=== PATIENT | male | born 1970 | race American Indian/Alaskan Native ===

== ENCOUNTER 2021-03-09 08:09 | Emergency (ER) | payer OTHER ==
[2021-03-09] MEDS ORDERED: ASPIRIN 325 MG TAB PO ONE (08:18)
[2021-03-09 08:47] LABS: Basophils # (Auto) 0.1 K/mm3 (0.0-0.1); Eosinophils # (Auto) 0.2 K/mm3 (0.0-0.4); Eosinophils % (Auto) 1.7 % (0.0-4.3); Monocytes # (Auto) 1.3 K/mm3 (0.0-0.8); Monocytes % (Auto) 12.8 % (0.0-7.3)
--- NOTE | 2021-03-09 09:00 | XRay Report ---
CHEST 2 VIEWS INDICATION: chest pain. Shortness of breath for one week. COMPARISON: None FINDINGS: Support devices: None. Heart: Within normal limits. Lungs/pleura: There is a focal 4 cm ill-defined airspace opacity at the anterior left lung base. A fo amarilys infiltrate or possibly a mass is difficult to exclude. The remainder of the lungs are clear. Tra ce left pleural effusion is identified. No pneumothorax. Additional findings: None. IMPRESSION: Ill-defined 4 cm opacity at the left lung base as described. Consider further evaluation with CT ches t preferably with contrast. Signer Name: Jack East Jr, MD Signed: 03/09/2021 8:56 AM Workstation Name: [id number]
[2021-03-09 09:13] LABS: Alanine Aminotransferase 22 units/L (7-56); Albumin 3.5 g/dL (3.9-5); BUN/Creatinine Ratio 12; Blood Urea Nitrogen 11 mg/dL (9-20); Calcium 9.7 mg/dL (8.4-10.2); Hemolysis Index 3
[2021-03-09] MEDS ORDERED: NITROGLYCERIN 0.4 MG TAB SUBL SL PRN (10:09)
[2021-03-09] MEDS ORDERED: ASPIRIN 325 MG TAB ONE (10:22)
--- NOTE | 2021-03-09 10:24 | Emergency Department Report ---
ED Chest Pain HPI - General Chief Complaint: Neuro Symptoms/Deficit Stated Complaint: chest pain, passed out, headache, left arm weakness Time Seen by Provider: 03/09/21 09:53 Source: patient Mode of arrival: Ambulatory Limitations: No Limitations - History of Present Illness Initial Comments: 50-year-old male with history of hypertension presents for a number of various complaints, namely mid substernal chest pain which lasted 1 hour today. The patient states that on Tuesday, 2 days ago, he was at a restaurant when suddenly he began to feel very sweaty and lightheaded and reportedly passed out. He woke up and was on the ground, and at that time felt like he had difficulty moving his left arm. Since then he has had intermittent episodes of global pressure-like headache, particularly on the right side of his head, intermittent chest pain lasting seconds at a time, and intermittent feeling like he is weak in the left arm. Today, his chest pain which he describes as sharp, lasted for 1 hour which was longer than any of the prior episodes and this scared him causing him to come to the emergency department. The pain radiates to his left arm. Denies any associated palpitations, nausea/vomiting, shortness of breath, cough, fever/chills, or any other associated symptoms. At this time he reports no headache and no symptoms other than a pain in the left side of his chest/armpit and the feeling like he is weak in the left arm. Although during the interview, the patient states that his chest pain is slightly increasing at this time. Severity scale (0 -10): 8 - Related Data Previous Rx's Medication Instructions Recorded Last Taken Type Famotidine [Pepcid] 20 mg PO BID #60 tablet 08/01/13 Unknown Rx HYDROcodone/APAP 10-325 [York 1 each PO Q6HR PRN #30 tablet 08/01/13 Unknown Rx 10/325] Metoclopramide [Reglan] 10 mg PO TID PRN #30 tablet 08/01/13 Unknown Rx Apixaban [Eliquis] 5 mg PO BID #74 tablet 03/09/21 Unknown Rx hydroCHLOROthiazide [HCTZ] 25 mg PO QDAY #30 tablet 03/09/21 Unknown Rx Allergies Allergy/AdvReac Type Severity Reaction Status Date / Time No Known Allergies Allergy Verified 03/09/21 08:18 Heart Score - HEART Score History: Highly suspicious EKG: Non-specific Age: 45-65 Risk factors: 1-2 risk factors Troponin: < normal limit HEART Score: 5 - EKG Read Time Time EKG Completed: 08:22 EKG Read Time: 08:27 ED Review of Systems ROS: Stated complaint: HEAD PAINS Other details as noted in HPI Constitutional: denies: chills, fever Eyes: denies: eye pain, vision change ENT: denies: throat pain, congestion Respiratory: denies: cough, shortness of breath Cardiovascular: chest pain, syncope. denies: palpitations, edema Gastrointestinal: denies: abdominal pain, nausea, vomiting Genitourinary: denies: dysuria, frequency Musculoskeletal: denies: back pain, myalgia Skin: denies: rash Neurological: headache (not now). denies: weakness, numbness ED Past Medical Hx - Past Medical History Previous Medical History?: Yes Hx Hypertension: Yes - Social History Smoking Status: Current Every Day Smoker Substance Use Type: None - Medications Home Medications: Home Medications Medication Instructions Recorded Confirmed Last Taken Type Famotidine [Pepcid] 20 mg PO BID #60 tablet 08/01/13 Unknown Rx HYDROcodone/APAP 10-325 [[place] 1 each PO Q6HR PRN #30 tablet 08/01/13 Unknown Rx 10/325] Metoclopramide [Reglan] 10 mg PO TID PRN #30 tablet 08/01/13 Unknown Rx Apixaban [Eliquis] 5 mg PO BID #74 tablet 03/09/21 Unknown Rx hydroCHLOROthiazide [HCTZ] 25 mg PO QDAY #30 tablet 03/09/21 Unknown Rx ED Physical Exam - General Limitations: No Limitations - Other Other exam information: GENERAL: Well developed and well nourished. No acute distress HEENT: Normocephalic. No obvious signs of trauma. Moist mucous membranes. EYES: Extraocular movements are intact. Pupils are equal round and reactive to light bilaterally NECK: Supple. Trachea is midline. LUNGS: Nonlabored breathing. Equal chest rise bilaterally. Rales localized to the left lung base. Otherwise clear. HEART/CARDIOVASCULAR: Regular rate and rhythm. No murmurs or rubs. VASCULAR: 2+ peripheral pulses, equal on both sides. Cap refill < 2 seconds ABDOMEN: Abdomen is soft and nondistended. There is no significant tenderness, guarding or rebound. SKIN: Skin is warm and dry NEURO: Patient is awake, alert, and oriented. viscosity inspector II-XII grossly intact. No focal deficits. Normal motor and sensory exam throughout with no drift. Normal speech. MUSCULOSKELETAL: No obvious deformities. No significant tenderness. BACK/SPINE: No midline tenderness or step-offs of the C/T/L spine. No costovertebral angle tenderness. ED Course Vital Signs 03/09/21 03/09/21 08:17 10:10 Temperature 99.0 F Pulse Rate 101 H Respiratory 18 Rate Blood Pressure 175/117 Blood Pressure 152/99 [Left] Blood Pressure 155/102 [Right] O2 Sat by Pulse 98 Oximetry RO score - Ro Score Age > 65: (0) No Aspirin use within the Past 7 Days: (1) Yes 3 or more CAD Risk Factors: (0) No 2 or more Angina events in past 24 hrs: (1) Yes Known CAD with more than 50% Stenosis: (0) No Elevated Cardiac Markers: (0) No ST Deviation Greater than 0.5mm: (0) No RO Score: 2 ED Medical Decision Making - Lab Data Result diagrams: 03/09/21 11:19 03/09/21 08:26 Lab Results 03/09/21 03/09/21 03/09/21 Range/Units 08:15 08:26 08:26 WBC 9.8 (4.5-11.0) K/mm3 RBC 4.77 (3.65-5.03) M/mm3 Hgb 15.7 H (11.8-15.2) gm/dl Hct 43.7 (35.5-45.6) % MCV 92 (84-94) fl MCH 33 H (28-32) pg MCHC 36 H (32-34) % RDW 14.4 (13.2-15.2) % Plt Count 355 (140-440) K/mm3 Lymph % (Auto) 18.3 (13.4-35.0) % Kinney % (Auto) 12.8 H (0.0-7.3) % Eos % (Auto) 1.7 (0.0-4.3) % Baso % (Auto) 0.6 (0.0-1.8) % Lymph # (Auto) 1.8 (1.2-5.4) K/mm3 Kinney # (Auto) 1.3 H (0.0-0.8) K/mm3 Eos # (Auto) 0.2 (0.0-0.4) K/mm3 Baso # (Auto) 0.1 (0.0-0.1) K/mm3 Seg Neutrophils % 66.6 (40.0-70.0) % Seg Neutrophils # 6.6 (1.8-7.7) K/mm3 PT (12.2-14.9) Sec. INR (0.87-1.13) APTT (24.2-36.6) Sec. Sodium 135 L (137-145) mmol/L Potassium 4.6 (3.6-5.0) mmol/L Chloride 97.2 L (98-107) mmol/L Carbon Dioxide 28 (22-30) mmol/L Anion Gap 14 mmol/L BUN 11 (9-20) mg/dL Creatinine 0.9 (0.8-1.3) mg/dL Estimated GFR > 60 ml/min BUN/Creatinine Ratio 12 % Glucose 107 H (75-100) mg/dL POC Glucose 100 (70-105) mg/dL Calcium 9.7 (8.4-10.2) mg/dL Total Bilirubin 0.30 (0.1-1.2) mg/dL AST 33 (5-40) units/L ALT 22 (7-56) units/L Alkaline Phosphatase 67 (35-129) units/L Troponin T < 0.010 (0.00-0.029) ng/mL Total Protein 7.9 (6.3-8.2) g/dL Albumin 3.5 L (3.9-5) g/dL Albumin/Globulin Ratio 0.8 % 03/09/21 03/09/21 03/09/21 Range/Units 11:19 11:19 11:19 WBC (4.5-11.0) K/mm3 RBC (3.65-5.03) M/mm3 Hgb 14.8 (11.8-15.2) gm/dl Hct 44.0 (35.5-45.6) % MCV (84-94) fl MCH (28-32) pg MCHC (32-34) % RDW (13.2-15.2) % Plt Count 325 (140-440) K/mm3 Lymph % (Auto) (13.4-35.0) % Kinney % (Auto) (0.0-7.3) % Eos % (Auto) (0.0-4.3) % Baso % (Auto) (0.0-1.8) % Lymph # (Auto) (1.2-5.4) K/mm3 Kinney # (Auto) (0.0-0.8) K/mm3 Eos # (Auto) (0.0-0.4) K/mm3 Baso # (Auto) (0.0-0.1) K/mm3 Seg Neutrophils % (40.0-70.0) % Seg Neutrophils # (1.8-7.7) K/mm3 PT 13.8 (12.2-14.9) Sec. INR 1.00 (0.87-1.13) APTT 36.5 (24.2-36.6) Sec. Sodium (137-145) mmol/L Potassium (3.6-5.0) mmol/L Chloride (98-107) mmol/L Carbon Dioxide (22-30) mmol/L Anion Gap mmol/L BUN (9-20) mg/dL Creatinine (0.8-1.3) mg/dL Estimated GFR ml/min BUN/Creatinine Ratio % Glucose (75-100) mg/dL POC Glucose (70-105) mg/dL Calcium (8.4-10.2) mg/dL Total Bilirubin (0.1-1.2) mg/dL AST (5-40) units/L ALT (7-56) units/L Alkaline Phosphatase (35-129) units/L Troponin T < 0.010 (0.00-0.029) ng/mL Total Protein (6.3-8.2) g/dL Albumin (3.9-5) g/dL Albumin/Globulin Ratio % - EKG Data -: EKG Interpreted by Me - EKG Data 03/09/21 10:38 EKG #1 performed at 8:22 AM Sinus tachycardia. Normal axis. Normal intervals. Early repolarization noted throughout. Peaked T waves noted in the anterolateral leads. Otherwise no significant ST or T wave abnormalities. EKG #2 performed at 10:11 AM Normal sinus rhythm. Normal axis. Normal intervals. Early repolarization noted throughout. Peak T waves noted in the antertolateral leads. Otherwise no significant ST or T wave abnormalities. - Radiology Data CTA CHEST WITH IV CONTRAST INDICATION: Chest pain. TECHNIQUE: Axial CT images were obtained through the chest after injection of 100 cc Omnipaque 350 IV contrast. 3 plane MIP reconstructions were produced. All CT scans at this location are performed using CT dose reduction for ALARA by means of automated exposure control. COMPARISON: None available. FINDINGS: Pulmonary Arteries: There are some small emboli and multiple segmental arteries in the left lower lobe. There is are also potentially some questionable emboli in some segmental branches in the right lower lobe. Lungs: There is a spiculated and heterogeneous 4.3 x 4.5 cm mass in the lateral left lower lobe. There is moderate emphysema. There are no additional pulmonary nodules or masses. Trachea and Bronchi: No significant abnormality. Heart and Pericardium: No significant abnormality. Vasculature: No significant abnormality. Lymphatics: There are some mildly enlarged left hilar nodes. For example, there is a 2.3 x 1.4 cm left hilar node on image 218 of series #4. Additional Findings: None. Upper Abdomen: No acute findings. Skeletal Structures: No acute findings or aggressive bone lesions. IMPRESSION: 1. Small emboli in the left lower lobe with additional questionable emboli in the right lower lobe. 2. Left lower lobe mass suggestive of bronchogenic malignancy. There is also left hilar adenopathy concerning for metastatic adenopathy. Findings discussed with Dr. Friedman at 10:00 AM central time. Signer Name: Taco Ralph MD Signed: 03/09/2021 10:00 AM Workstation Name: [id number] CHEST 2 VIEWS INDICATION: chest pain. Shortness of breath for one week. COMPARISON: None FINDINGS: Support devices: None. Heart: Within normal limits. Lungs/pleura: There is a focal 4 cm ill-defined airspace opacity at the anterior left lung base. A focal infiltrate or possibly a mass is difficult to exclude. The remainder of the lungs are clear. Trace left pleural effusion is identified. No pneumothorax. Additional findings: None. IMPRESSION: Ill- defined 4 cm opacity at the left lung base as described. Consider further evaluation with CT chest preferably with contrast. Signer Name: Jack East Jr, MD Signed: 03/09/2021 7:56 AM Workstation Name: [id number] CT head/brain wo con INDICATION: Syncope and headache. TECHNIQUE: All CT scans at this location are performed using CT dose reduction for ALARA by means of automated exposure control. COMPARISON: None available. FINDINGS: There is no evidence of hemorrhage, hydrocephalus, brain edema, or mass effect/mass lesion. There is overall normal brain formation and brain volume for the patient's age. Ventricular and cisternal/sulcal size is normal for age. The included paranasal sinuses and mastoid air cells are clear. The orbits appear unremarkable. IMPRESSION: 1. No findings to explain the patient's symptoms. Signer Name: Taco Ralph MD Signed: 03/09/2021 9:52 AM Workstation Name: [id number] - Medical Decision Making 50-year-old male presenting for mid substernal chest pain radiating to the left arm. Patient has a complex story in which he had a syncopal episode 2 days ago at random. He was at dinner with friends and standing up and all of a sudden he began to feel sweaty and lightheaded and passed out. After waking up, the patient reported having difficulty moving his left arm. Since this episode he has had intermittent episodes of chest pain and headache. Chest pain lasted 1 hour and resolved just prior to arrival to the emergency department. On initial assessment, he was initially tachycardic but now has a heart rate in the 80s. He is afebrile and with otherwise normal vitals other than hypertension. Although he feels weak in his left arm, he has a normal neurologic exam with normal motor function and no sensory deficits throughout. The remainder of his neurologic exam is nonfocal. There is no obvious signs of head trauma. He has no tenderness of the C/T/L-spine. Lung auscultation reveals crackles localized to the left lung base. During the interview, the patient reported that his chest pain is returning and I have ordered a repeat EKG. Initial EKG showed peaked T waves in the anterior lateral leads, with no other obvious abnormalities. Repeat EKG is unchanged from prior. The patient's new chest pain resolved within a couple minutes. Labs and chest x-ray were ordered in triage and have only partially resulted. CBC is still pending. CMP is resulted and there is no significant electrolyte abnormality and kidney function is normal. Initial troponin is negative. Patient's heart score is 4. However, chest x-ray reveals 4 cm opacity/mass localized to the left lung base with recommendation for further elucidation with contrasted CT of the chest. Given the patient's concerning presentation and symptoms, I have ordered CT a of the chest to evaluate for pulmonary embolism, aortic dissection, and to further elucidate the opacity seen in chest x-ray. I have also ordered CT of the head given that he reports syncope and possibly hit his head. We will continue monitor the patient closely and follow-up all diagnostic studies. CBC has resulted in reveals no significant leukocytosis or anemia. Hemoglobin is elevated at 15.4 consistent with hemoconcentration due to dehydration. We will therefore administer 1 L of IV fluids. At 10:55 AM, I received a call from the radiologist. The patient's head CT reveals no acute abnormalities. There is no cranial bleeding. Patient's CT of the chest reveals a 4.5 cm mass in the left lung base with associated adenopathy and findings highly suggestive of bronchogenic carcinoma. In addition, there are left lower lobe pulmonary emboli and questionable right lower lobe pulmonary emboli. In light of these findings, coupled with the patient's story featuring syncope, and recurrent chest pain, I will administer aspirin, start a heparin drip, and admit the patient to the hospitalist for further work-up and ma nagement. I discussed the patient's diagnostic results including labs and CT head, chest x-ray, and CT angiogram of the chest and conveyed to the patient and his at the bedside that he does have a 4.5 cm mass in the left lung which is highly concerning for lung cancer as well as pulmonary emboli. The patient is an active smoker. I did answer all the patient's questions. He expressed understanding and agreement with our plan of care. At 45 PM, I spoke with Dr. Singh regarding admission and he said he would come down and see the patient. I consulted cardiology and spoke over the phone with Dr. Pope of cardiology who stated that he would be happy to consult and see the patient and provide further inpatient recommendations. Dr. Singh will assume care and make decisions regarding disposition. Critical Care Time: Yes (40) Critical care time in (mins) excluding proc time.: 40 Critical care attestation.: If time is entered above; I have spent that time in minutes in the direct care of this critically ill patient, excluding procedure time. Critical care time was spent in the assessment, evaluation, work-up, and management of unstable angina and pulmonary emboli requiring initiation of IV heparin drip and consultation with specialist ED Disposition Clinical Impression: Pulmonary emboli, Mass of left lung, Syncope, Hypertension, Dehydration, Chest pain Disposition: OP ADMIT IP TO THIS HOSP Is pt being admited?: Yes Condition: Stable Instructions: Angina, [id number], Syncope (ED), Hypertension (ED), Nonspecific Chest Pain, Adult Prescriptions: Apixaban [Eliquis] 5 mg PO BID #74 tablet hydroCHLOROthiazide [HCTZ] 25 mg PO QDAY #30 tablet Referrals: PRIMARY CARE, [Primary Care Provider] - 3-5 Days
[2021-03-09 10:42] LABS: Basophils % (Auto) 0.6 % (0.0-1.8); Lymphocytes # (Auto) 1.8 K/mm3 (1.2-5.4); Lymphocytes % (Auto) 18.3 % (13.4-35.0); Mean Corpuscular HGB Conc 36 % (32-34); Mean Corpuscular Volume 92 fl (84-94); Platelet Count 355 K/mm3 (140-440); Red Blood Count 4.77 M/mm3 (3.65-5.03); Red Cell Distribution Width 14.4 % (13.2-15.2)
[2021-03-09 10:46] LABS: Hematocrit 43.7 % (35.5-45.6); Hemoglobin 15.7 gm/dl (11.8-15.2)
--- NOTE | 2021-03-09 10:56 | Cat Scan Report ---
CT head/brain wo con INDICATION: Syncope and headache. TECHNIQUE: All CT scans at this location are performed using CT dose reduction for ALARA by means of automated e xposure control. COMPARISON: None available. FINDINGS: There is no evidence of hemorrhage, hydrocephalus, brain edema, or mass effect/mass lesion. There is overall normal brain formation and brain volume for the patient's age. Ventricular and cisternal/sulc al size is normal for age. The included paranasal sinuses and mastoid air cells are clear. The orbits appear unremarkable. IMPRESSION: 1. No findings to explain the patient's symptoms. Signer Name: Taco Ralph MD Signed: 03/09/2021 10:52 AM Workstation Name: [id number]
[2021-03-09] MEDS ORDERED: HEPARIN/ 0.45% NACL DRIP 25,000 UNIT/500 ML BAG IV SCH (11:00)
[2021-03-09] MEDS ORDERED: HEPARIN 10,000 UNITS/10 ML VIAL IV ONE (11:00)
[2021-03-09] MEDS ORDERED: HEPARIN 10,000 UNITS/10 ML VIAL IV PRN (11:00)
--- NOTE | 2021-03-09 11:04 | Cat Scan Report ---
CTA CHEST WITH IV CONTRAST INDICATION: Chest pain. TECHNIQUE: Axial CT images were obtained through the chest after injection of 100 cc Omnipaque 350 IV contrast. 3 plane MIP reconstructions were produced. All CT scans at this location are performed using CT dose reduction for ALARA by means of automated exposure control. COMPARISON: None available. FINDINGS: Pulmonary Arteries: There are some small emboli and multiple segmental arteries in the left lower lob e. There is are also potentially some questionable emboli in some segmental branches in the right low er lobe. Lungs: There is a spiculated and heterogeneous 4.3 x 4.5 cm mass in the lateral left lower lobe. Ther e is moderate emphysema. There are no additional pulmonary nodules or masses. Trachea and Bronchi: No significant abnormality. Heart and Pericardium: No significant abnormality. Vasculature: No significant abnormality. Lymphatics: There are some mildly enlarged left hilar nodes. For example, there is a 2.3 x 1.4 cm lef t hilar node on image 218 of series #4. Additional Findings: None. Upper Abdomen: No acute findings. Skeletal Structures: No acute findings or aggressive bone lesions. IMPRESSION: 1. Small emboli in the left lower lobe with additional questionable emboli in the right lower lobe. 2. Left lower lobe mass suggestive of bronchogenic malignancy. There is also left hilar adenopathy co ncerning for metastatic adenopathy. Findings discussed with Dr. Friedman at 10:00 AM central time. Signer Name: Taco Ralph MD Signed: 03/09/2021 11:00 AM Workstation Name: [id number]
[2021-03-09] MEDS ORDERED: SODIUM CHLORIDE 0.9% 1000 ML 1,000 ML IV ONE (11:24)
[2021-03-09 11:29] LABS: Hemoglobin 14.8 gm/dl (11.8-15.2)
[2021-03-09 11:42] LABS: Partial Thromboplastin Time 36.5 Sec. (24.2-36.6)
--- NOTE | 2021-03-09 12:26 | Event Note ---
Date: 03/09/21 50 YO Male with nicotine dependence, hypertension with medication noncompliance who is currently lost to outpatient follow-up presents to ED for evaluation. Patient seen and evaluated in the emergency department. All lab and imaging studies reviewed. Upon further evaluation the patient was found to have atypical chest pain consistent with chest wall pain localized to the left flank. Patient underwent CT scan of the chest which reveals left lung mass consistent with malignancy. Patient found to have a pulse oximetry of 98% on room air with exertion without dyspnea. Cardiac enzymes and EKG did not reveal any evidence of ischemia. Patient found to have hypertension and treated with antihypertensive therapy. Patient medically optimized and treated with therapeutic anticoagulation and antihypertensive therapy and discharged home and instructed to follow-up with primary care physician within 1 week as well as oncology within 3 to 5 days, as well as cardiology within 3 to 5 days. Patient counseled regarding the risk of malignancy and risk of worsening symptoms if patient does not undergo outpatient management. Advanced care planning conducted in ED. Patient acknowledges understanding instructions. ED Physical Exam GENERAL: Well developed and well nourished. No acute distress HEENT: Normocephalic. No obvious signs of trauma. Moist mucous membranes. EYES: Extraocular movements are intact. Pupils are equal round and reactive to light bilaterally NECK: Supple. Trachea is midline. LUNGS: Nonlabored breathing. Equal chest rise bilaterally. Rales localized to the left lung base. Otherwise clear. HEART/CARDIOVASCULAR: Regular rate and rhythm. No murmurs or rubs. VASCULAR: 2+ peripheral pulses, equal on both sides. Cap refill < 2 seconds ABDOMEN: Abdomen is soft and nondistended. There is no significant tenderness, guarding or rebound. SKIN: Skin is warm and dry NEURO: Patient is awake, alert, and oriented. mechanical press operator II-XII grossly intact. No focal deficits. Normal motor and sensory exam throughout with no drift. Normal speech. MUSCULOSKELETAL: No obvious deformities. No significant tenderness. BACK/SPINE: No midline tenderness or step-offs of the C/T/L spine. No costovertebral angle tenderness.
[2021-03-09] MEDS ORDERED: hydroCHLOROthiazide 25 MG TAB PO NR (12:31)
[2021-03-09 13:00] LABS: Hematocrit 41.6 % (35.5-45.6); Mean Corpuscular HGB Conc 34 % (32-34); Mean Corpuscular Volume 91 fl (84-94); Platelet Count 318 K/mm3 (140-440); Red Blood Count 4.55 M/mm3 (3.65-5.03); Red Cell Distribution Width 14.3 % (13.2-15.2)
[2021-03-09 13:13] LABS: INR 1.12 (0.87-1.13)
[2021-03-09 13:27] LABS: Partial Thromboplastin Time 230.3 Sec. (24.2-36.6)
[2021-03-09 14:38] VITALS: BP 140/90
[2021-03-09] MEDS ORDERED: APIXABAN 5 MG TAB PO SCH (22:00)
--- NOTE | 2021-03-10 11:13 | Electrocardiograph Report ---
[facility] Test Date: 2021-03-09 Test Time: 08:22:01 Pat Name: FREYA MIRZA Department: Room: Gender: M [employer] Assistants: SHAYE : 1970 Requested By: ED DOC Order Number: [id number] Reading MD: Brian Garcia Measurements Intervals [place] Rate: 97 P: 20 IN: 137 QRS: 65 QRSD: 81 T: 55 QT: 343 QTc: 436 Interpretive Statements Sinus rhythm Probable left atrial enlargement ST elev, probable normal early repol pattern No previous ECG available for comparison Electronically Signed On 03-10-2021 11:13:14 EDT by Brian Garcia
--- NOTE | 2021-03-10 11:14 | Electrocardiograph Report ---
[facility] Test Date: 2021-03-09 Test Time: 10:11:50 Pat Name: FREYA MIRZA Department: Room: Gender: M Licensed Pharmacist: CATHERINE : 1970 Requested By: GÉNESIS ROMAN Order Number: [id number] Reading MD: Brian Garcia Measurements Intervals [place] Rate: 86 P: 57 AL: 155 QRS: 52 QRSD: 81 T: 44 QT: 361 QTc: 431 Interpretive Statements Sinus rhythm Consider left ventricular hypertrophy ST elevation suggests acute pericarditis Compared to ECG 03/09/2021 08:22:01 No significant changes Electronically Signed On 03-10-2021 11:13:39 EDT by Brian Garcia
== END 2021-03-09 14:15 | disposition admitted as inpatient to this hospital (09) ==
LOC: ED 08:09
DX: I26.99 Other pulmonary embolism without acute cor pulmonale (principal); I10 Essential (primary) hypertension; E86.0 Dehydration; R91.8 Other nonspecific abnormal finding of lung field; F17.200 Nicotine dependence, unspecified, uncomplicated; Z98.890 Other specified postprocedural states; Z79.899 Other long term (current) drug therapy
CPT/HCPCS: 36415; 70450; 71046; 71275; 80053; 82565; 82962; 84484; 85014; 85018; 85025; 85027; 85049; 85610; 85730; 93005; 96365; 96376; 99291; J1644; J7030; Q9967; 99284

== ENCOUNTER 2021-04-30 08:21 | Day surgery (SDC) | payer OTHER ==
[2021-04-30] MEDS ORDERED: ONDANSETRON 4 MG/2 ML INJ IV ONE (08:47)
[2021-04-30] MEDS ORDERED: HYDROmorphone 1 MG/1 ML INJ IV ONE (08:49)
[2021-04-30] MEDS ORDERED: SODIUM CHLORIDE 0.9% 500 ML 500 ML IV SCH (09:00)
[2021-04-30 09:14] LABS: Hematocrit 49.3 % (35.5-45.6); Hemoglobin 16.4 gm/dl (11.8-15.2); Mean Corpuscular HGB Conc 33 % (32-34); Mean Corpuscular Volume 91 fl (84-94); Platelet Count 289 K/mm3 (140-440); Red Cell Distribution Width 15.6 % (13.2-15.2)
[2021-04-30 09:19] VITALS: BP 142/104
[2021-04-30 09:24] LABS: INR 0.87 (0.87-1.13)
[2021-04-30 09:25] LABS: Partial Thromboplastin Time 32.1 Sec. (24.2-36.6)
--- NOTE | 2021-04-30 11:01 | Cat Scan Report ---
CT CHEST WITHOUT CONTRAST INDICATION / CLINICAL INFORMATION: lung mass. TECHNIQUE: Axial CT images were obtained through the chest without contrast. Sagittal and coronal reformatted im ages. All CT scans at this location are performed using CT dose reduction for ALARA by means of autom ated exposure control. COMPARISON: 03/09/2021 FINDINGS: This examination was scheduled as a CT-guided biopsy of a left lung mass seen on previous CT angiogra phy of the chest in the lingular region measuring 4.1 x 4.7 cm in axial plane. The patient was rescan gerri today prior to the CT guided left lung biopsy for localization purposes. The images demonstrate n ear complete resolution of the left lung mass. There is only minor linear density remaining in this a marily measuring 3.0 x 1.9 cm in axial plane. This appears to represent scarring. In retrospect, the mas s lesion seen on the previous examination was heterogeneous and partially necrotic. Given these findi ngs this masslike lesion was most likely inflammatory on the initial exam and probably represented a small pulmonary abscess. Moderate underlying emphysematous changes are again seen but no suspicious p ulmonary lesion. For this reason the biopsy was canceled. These findings were discussed with and show n to the patient who was in agreement. IMPRESSION: 4.7 cm masslike lesion in the lingula seen on 03/09/2021 exam has essentially resolved with minor sca rring remaining. I suspect this represented an infectious etiology and not a neoplasm. Please see abo ve. Follow-up CT chest with contrast in 3-6 months is recommended to ensure complete resolution. Signer Name: Jack East Jr, MD Signed: 04/30/2021 10:57 AM Workstation Name: [id number]
== END 2021-04-30 08:22 | disposition home or self-care (01) ==
LOC: CATHLABREC 08:21 → CT 08:21 → CATHLABREC 08:22 → EDSTATUS 08:30
PROVIDERS: ATTEND Specialist
DX: R91.8 Other nonspecific abnormal finding of lung field (principal); Z53.8 Procedure and treatment not carried out for other reasons; I10 Essential (primary) hypertension; Z87.891 Personal history of nicotine dependence; Z79.899 Other long term (current) drug therapy; Z98.890 Other specified postprocedural states
CPT/HCPCS: 36415; 71250; 85027; 85610; 85730; J1170; J2405; J7040